=== PATIENT | male | born 1945 | race Caucasian/White ===

== ENCOUNTER → 2022-12-06 10:37 | Outpatient (CLI) | payer MEDICARE, BC, SELFPAY ==
--- NOTE | 2022-12-06 | DI.NM.S_ITS ---
PROCEDURE: NM BONE SCAN WHOLE BODY RADIOPHARMACEUTICAL: 20.5 mCi Tc-99m MDP IV. INDICATIONS: Malignant neoplasm of prostate TECHNIQUE: Delayed whole-body scintigrams were obtained approximately 3-4 hours after intravenous injection of radiotracer. Anterior and posterior views were acquired from vertex to feet. Additional left and right oblique views of the pelvis were obtained. COMPARISON: None. FINDINGS: Bladder is distended, partially obscure pelvis. There is subtle increased uptake in the posterior aspect of the right 8th rib. No lesions are identified in skull, sternum, clavicles, scapulae, bony pelvis, and visualized shafts of the long bones. There are foci of increased uptake in cervical, thoracic and lumbar spine most likely secondary to degenerative disc and facet disease; early metastasis to spine could be obscured by degenerative changes. There are foci of increased periarticular activity involving shoulders, sternoclavicular joints, elbows, wrists, hands, hips, SI joints, knees, ankles and feet, compatible with degenerative/arthritic changes. IMPRESSION: 1. Subtle increased uptake in the posterior aspect of the right 8th rib. Recommend radiographic correlation. 2. Pelvis is partially obscured by distended urinary bladder. 3. Elsewhere, no definitive metastatic disease. Dictated by: Vasiliy Owens M.D. on 12/06/2022 at 18:23 Approved by: Vasiliy Owens M.D. on 12/07/2022 at 10:45
== END ==
PROVIDERS: Referring Provider Urology; Visit Provider Urology
DX: C61 Malignant neoplasm of prostate (principal)
CPT/HCPCS: 78306; A9503